=== PATIENT | male | born 1955 | race Caucasian/White ===

== ENCOUNTER 2022-05-04 10:46 | Inpatient (IN) ==
[2022-05-04] MEDS ORDERED: 0.9 % Sodium Chloride 1,000 ML IVC ONE ×2 (11:38→11:39)
[2022-05-04] MEDS ORDERED: Piperacillin/Tazobactam 3.375 GM in 0.9 % Sodium Chloride Mini Bag 100 ML IVPB ONE (11:38)
[2022-05-04 12:30] LABS: Basophils % 0.4 %; Eosinophils # 0.1 K/mcL (0.0-0.6); Eosinophils % 1.4 %; Hematocrit 32.7 % (37.5-50.1); Hemoglobin 10.6 g/dL (12.9-16.9); Immature Granulocytes % 0.4 % (0-4); Lymphocytes # 0.9 K/mcL (0.6-4.6); Lymphocytes % 9.2 %; Mean Corpuscular HGB Conc 32.4 g/dL (31.6-35.5); Mean Corpuscular Volume 86.5 fL (83.0-100.0); Mean Platelet Volume 9.1 fL (9.4-12.4); Monocytes # 0.9 K/mcL (0.0-1.3); Monocytes % 9.8 %; Neutrophils # 7.3 K/mcL (1.6-8.9); Platelet Count 356 K/mcL (140-400); Red Blood Count 3.78 M/mcL (4.19-5.50); Red Cell Distribution Width 16.1 % (11.5-14.5); Segmented Neutrophils % 78.8 %; White Blood Count 9.2 K/mcL (4.3-11.1)
[2022-05-04 12:38] LABS: INR 1.4; Prothrombin Time 15.4 Seconds (9.4-12.1)
[2022-05-04 12:40] LABS: Activated Partial Thrombo Time 30.5 Seconds (26.0-36.0)
[2022-05-04 12:49] LABS: Bilirubin,Urine Negative (Negative); Blood,Urine Large (Negative); Clarity,Urine Ex.Turbid (Clear); Color,Urine Yellow (Yellow); Glucose,Urine (UA) Normal (Normal); Ketones,Urine Negative (Negative); Leukocyte Esterase,Urine Large (Negative); Nitrite,Urine Negative (Negative); PH,Urine 6.5 pH Units (5.0-8.0); Protein,Urine >=300 mg/dL (Neg-Trace); Specific Gravity,Urine 1.018 (1.010-1.025); Urobilinogen,Urine Normal (Normal)
[2022-05-04 12:51] LABS: Alanine Aminotransferase 63 Units/L (7-52); Albumin 3.6 g/dL (3.5-5.7); Albumin/Globulin Ratio 0.9 (1.1-2.2); Alkaline Phosphatase 79 Units/L (34-104); Aspartate Amino Transferase 62 Units/L (13-39); BUN/Creatinine Ratio 23 (6-26); Bilirubin,Direct 0.1 mg/dL (0.0-0.2); Bilirubin,Indirect 0.4 mg/dL (0.0-1.0); Bilirubin,Total 0.5 mg/dL (0.3-1.0); Blood Urea Nitrogen 35 mg/dL (8-23); Calcium 8.7 mg/dL (8.6-10.3); Carbon Dioxide 22 mEq/L (23-29); Chloride 99 mEq/L (98-107); Globulin 3.8 g/dL (2.4-3.5); Glucose 123 mg/dL (70-105); Magnesium 1.3 mg/dL (1.6-2.6); Osmolality,Calculated 281 (280-300); Phosphorous 3.6 mg/dL (2.7-4.5); Potassium 4.3 mEq/L (3.5-5.1); Sodium 131 mEq/L (136-145); Total Protein 7.4 g/dL (6.4-8.9); Troponin I < 0.03 ng/mL (< 0.04)
[2022-05-04] MEDS ORDERED: *HR* FentaNYL (PF) 100 MCG/2 ML VIAL IVP ONE (13:40)
[2022-05-04] MEDS ORDERED: *HR* HYDROcodone/Acet 5/325 mg TABLET PO PRN (15:55)
[2022-05-04] MEDS ORDERED: Ondansetron 4 MG/2 ML VIAL IVP PRN (15:55)
[2022-05-04] MEDS ORDERED: Acetaminophen 325 MG TABLET PO PRN (15:55)
[2022-05-04] MEDS ORDERED: Melatonin 3 MG TABLET PO PRN (15:55)
[2022-05-04] MEDS ORDERED: Naloxone 0.4 MG/ML INJ IVP PRN (15:55)
[2022-05-04] MEDS ORDERED: *HR* FentaNYL (PF) 100 MCG/2 ML VIAL IVP PRN (15:57)
[2022-05-04] MEDS ORDERED: D5% in Water 1,000 ML IVC PRN (16:14)
[2022-05-04] MEDS ORDERED: *HR* Dextrose 50 % in Water (Syg) 50 ML SYRINGE IVP PRN (16:14)
[2022-05-04] MEDS ORDERED: Dextrose Gel 15 GM/37.5 ML TUBE PO PRN ×2 (16:14)
[2022-05-04] MEDS: Insulin LISPRO 300 UNITS/3 ML VIAL SUBQ SCH ×2 (17:26→20:54)
[2022-05-04] MEDS: Cefepime HCl 2,000 MG in 0.9 % Sodium Chloride 10 ML IVP SCH (17:26)
[2022-05-04] MEDS: *HR* Heparin 5,000 UNIT/ML VIAL SQ SCH (17:26)
[2022-05-05 02:02] LABS: Basophils # 0.1 K/mcL (0.0-0.2); Basophils % 0.5 %; Eosinophils # 0.3 K/mcL (0.0-0.6); Eosinophils % 3.5 %; Hematocrit 29.7 % (37.5-50.1); Hemoglobin 9.7 g/dL (12.9-16.9); Immature Granulocytes % 0.2 % (0-4); Lymphocytes # 0.9 K/mcL (0.6-4.6); Lymphocytes % 9.9 %; Mean Corpuscular HGB Conc 32.7 g/dL (31.6-35.5); Mean Corpuscular Hemoglobin 28.2 pg (28.0-33.3); Mean Corpuscular Volume 86.3 fL (83.0-100.0); Mean Platelet Volume 9.4 fL (9.4-12.4); Monocytes # 0.8 K/mcL (0.0-1.3); Monocytes % 8.5 %; Neutrophils # 7.1 K/mcL (1.6-8.9); Platelet Count 349 K/mcL (140-400); Red Blood Count 3.44 M/mcL (4.19-5.50); Red Cell Distribution Width 16.1 % (11.5-14.5); Segmented Neutrophils % 77.4 %; White Blood Count 9.2 K/mcL (4.3-11.1)
[2022-05-05 02:21] LABS: Calcium 8.2 mg/dL (8.6-10.3); INR 1.3; Potassium 4.3 mEq/L (3.5-5.1); Prothrombin Time 14.9 Seconds (9.4-12.1)
[2022-05-05 02:22] LABS: Alanine Aminotransferase 80 Units/L (7-52); Albumin 3.1 g/dL (3.5-5.7); Albumin/Globulin Ratio 0.9 (1.1-2.2); Alkaline Phosphatase 68 Units/L (34-104); Aspartate Amino Transferase 100 Units/L (13-39); Bilirubin,Indirect 0.3 mg/dL (0.0-1.0); Bilirubin,Total 0.3 mg/dL (0.3-1.0); Globulin 3.3 g/dL (2.4-3.5); Total Protein 6.4 g/dL (6.4-8.9)
[2022-05-05] MEDS: *HR* Heparin 5,000 UNIT/ML VIAL SQ SCH (05:54)
[2022-05-05] MEDS: Insulin LISPRO 300 UNITS/3 ML VIAL SUBQ SCH ×4 (06:56→20:06)
[2022-05-05 08:41] LABS: Acetaminophen < 10 mcg/mL (10-20); Salicylate < 2.5 mg/dL (15.0-30.0)
[2022-05-05] MEDS: Cefepime HCl 2,000 MG in 0.9 % Sodium Chloride 10 ML IVP SCH (17:05)
[2022-05-06 08:15] LABS: Enterococcus faecalis by PCR Not Detected (Not Detect); Enterococcus faecium by PCR Not Detected (Not Detect); Staphylococcus aureus by PCR Not Detected (Not Detect); Staphylococcus by PCR Not Detected (Not Detect)
[2022-05-06 08:16] LABS: A.calcoaceticus-baumannii cplx Not Detected (Not Detect); Bacteroides fragilis by PCR Not Detected (Not Detect); Candida albicans by PCR Not Detected (Not Detect); Candida auris by PCR Not Detected (Not Detect); Candida glabrata by PCR Not Detected (Not Detect); Candida krusei by PCR Not Detected (Not Detect); Candida parapsilosis by PCR Not Detected (Not Detect); Candida tropicalis by PCR Not Detected (Not Detect); Crypto. neoformans/gattii PCR Not Detected (Not Detect); Enterobacter cloacae Cmplx PCR Not Detected (Not Detect); Enterobacterales by PCR Not Detected (Not Detect); Escherichia coli by PCR Not Detected (Not Detect); Klebs. pneumoniae group by PCR Not Detected (Not Detect); Klebsiella aerogenes by PCR Not Detected (Not Detect); Klebsiella oxytoca by PCR Not Detected (Not Detect); Proteus by PCR Not Detected (Not Detect); Pseudomonas aeruginosa by PCR Not Detected (Not Detect); Salmonella species by PCR Not Detected (Not Detect); Serratia marcescens by PCR Not Detected (Not Detect); Staph epidermidis by PCR Not Detected (Not Detect); Staph lugdunensis by PCR Not Detected (Not Detect); Stenotrophomonas maltophilia Not Detected (Not Detect); Streptococcus agalactiae(B)PCR Not Detected (Not Detect); Streptococcus by PCR Not Detected (Not Detect); Streptococcus pneumoniae PCR Not Detected (Not Detect); Streptococcus pyogenes (A) PCR Not Detected (Not Detect)
[2022-05-06] MEDS: Insulin LISPRO 300 UNITS/3 ML VIAL SUBQ SCH ×4 (08:50→21:37)
[2022-05-06] MEDS ORDERED: Lidocaine/EPI 1:100k 1% 50 ML VIAL ONE (11:34)
[2022-05-06] MEDS ORDERED: 0.9 % Sodium Chloride 500 ML ONE ×2 (11:34→12:23)
[2022-05-06] MEDS ORDERED: *HR* Midazolam HCl 2 MG/2 ML VIAL IVP ONE (12:04)
[2022-05-06] MEDS ORDERED: *HR* FentaNYL (PF) 100 MCG/2 ML VIAL IVP ONE (12:04)
[2022-05-06] MEDS ORDERED: Iopamidol - 300 50 ML VIAL IVP ONE (12:32)
[2022-05-06 15:51] LABS: Enterococcus faecalis by PCR Not Detected (Not Detect); Enterococcus faecium by PCR Not Detected (Not Detect)
[2022-05-06 15:52] LABS: A.calcoaceticus-baumannii cplx Not Detected (Not Detect); Bacteroides fragilis by PCR Not Detected (Not Detect); Candida albicans by PCR Not Detected (Not Detect); Candida auris by PCR Not Detected (Not Detect); Candida glabrata by PCR Not Detected (Not Detect); Candida krusei by PCR Not Detected (Not Detect); Candida parapsilosis by PCR Not Detected (Not Detect); Candida tropicalis by PCR Not Detected (Not Detect); Crypto. neoformans/gattii PCR Not Detected (Not Detect); Enterobacter cloacae Cmplx PCR Not Detected (Not Detect); Enterobacterales by PCR Not Detected (Not Detect); Escherichia coli by PCR Not Detected (Not Detect); Klebs. pneumoniae group by PCR Not Detected (Not Detect); Klebsiella aerogenes by PCR Not Detected (Not Detect); Klebsiella oxytoca by PCR Not Detected (Not Detect); Proteus by PCR Not Detected (Not Detect); Pseudomonas aeruginosa by PCR Not Detected (Not Detect); Salmonella species by PCR Not Detected (Not Detect); Serratia marcescens by PCR Not Detected (Not Detect); Staph epidermidis by PCR Not Detected (Not Detect); Staph lugdunensis by PCR Not Detected (Not Detect); Staphylococcus aureus by PCR Not Detected (Not Detect); Staphylococcus by PCR DETECTED (Not Detect); Stenotrophomonas maltophilia Not Detected (Not Detect); Streptococcus agalactiae(B)PCR Not Detected (Not Detect); Streptococcus by PCR Not Detected (Not Detect); Streptococcus pneumoniae PCR Not Detected (Not Detect); Streptococcus pyogenes (A) PCR Not Detected (Not Detect)
[2022-05-06] MEDS: Cefepime HCl 2,000 MG in 0.9 % Sodium Chloride 10 ML IVP SCH (17:34)
[2022-05-07] MEDS: *HR* OxyCODONE Immed Rel 5 MG TABLET PO PRN (05:22)
[2022-05-07 05:29] LABS: Basophils # 0.1 K/mcL (0.0-0.2); Basophils % 0.7 %; Eosinophils # 0.4 K/mcL (0.0-0.6); Eosinophils % 4.3 %; Hematocrit 32.7 % (37.5-50.1); Hemoglobin 10.5 g/dL (12.9-16.9); Immature Granulocytes % 0.7 % (0-4); Lymphocytes # 1.4 K/mcL (0.6-4.6); Lymphocytes % 14.2 %; Mean Corpuscular HGB Conc 32.1 g/dL (31.6-35.5); Mean Corpuscular Hemoglobin 28.1 pg (28.0-33.3); Mean Corpuscular Volume 87.4 fL (83.0-100.0); Mean Platelet Volume 8.8 fL (9.4-12.4); Monocytes # 0.6 K/mcL (0.0-1.3); Neutrophils # 7.1 K/mcL (1.6-8.9); Platelet Count 458 K/mcL (140-400); Red Blood Count 3.74 M/mcL (4.19-5.50); Red Cell Distribution Width 16.1 % (11.5-14.5); Segmented Neutrophils % 74.1 %; White Blood Count 9.5 K/mcL (4.3-11.1)
[2022-05-07 05:48] LABS: Calcium 8.4 mg/dL (8.6-10.3); Potassium 4.5 mEq/L (3.5-5.1)
[2022-05-07] MEDS: Insulin LISPRO 300 UNITS/3 ML VIAL SUBQ SCH ×4 (08:10→21:17)
[2022-05-08] MEDS: *HR* OxyCODONE Immed Rel 5 MG TABLET PO PRN (02:29)
[2022-05-08 03:02] LABS: Basophils # 0.1 K/mcL (0.0-0.2); Basophils % 0.7 %; Eosinophils # 0.4 K/mcL (0.0-0.6); Eosinophils % 3.8 %; Hematocrit 33.3 % (37.5-50.1); Hemoglobin 10.6 g/dL (12.9-16.9); Immature Granulocytes % 0.8 % (0-4); Lymphocytes # 1.8 K/mcL (0.6-4.6); Lymphocytes % 15.5 %; Mean Corpuscular HGB Conc 31.8 g/dL (31.6-35.5); Mean Corpuscular Hemoglobin 27.8 pg (28.0-33.3); Mean Corpuscular Volume 87.4 fL (83.0-100.0); Monocytes # 0.7 K/mcL (0.0-1.3); Neutrophils # 8.3 K/mcL (1.6-8.9); Platelet Count 491 K/mcL (140-400); Red Blood Count 3.81 M/mcL (4.19-5.50); Red Cell Distribution Width 16.1 % (11.5-14.5); Segmented Neutrophils % 73.2 %; White Blood Count 11.3 K/mcL (4.3-11.1)
[2022-05-08 04:59] LABS: Calcium 8.7 mg/dL (8.6-10.3); Potassium 4.4 mEq/L (3.5-5.1)
[2022-05-08 05:07] LABS: Albumin 3.3 g/dL (3.5-5.7); Albumin/Globulin Ratio 0.9 (1.1-2.2); Bilirubin,Indirect 0.3 mg/dL (0.0-1.0); Bilirubin,Total 0.3 mg/dL (0.3-1.0); Globulin 3.6 g/dL (2.4-3.5); Total Protein 6.9 g/dL (6.4-8.9)
[2022-05-08] MEDS: Insulin LISPRO 300 UNITS/3 ML VIAL SUBQ SCH ×4 (09:30→23:45)
[2022-05-08] MEDS: cefTRIAXone 2,000 MG in 0.9 % Sodium Chloride Mini Bag 100 ML IVPB SCH (15:25)
[2022-05-08] MEDS: Insulin DETEMIR 100 UNIT/ML X5UNITS SUBQ SCH (15:26)
[2022-05-08 23:13] VITALS: TEMP 98.2
[2022-05-09 08:08] VITALS: BP 151/77; PULSE 83; O2SAT 98
[2022-05-09] MEDS: Insulin LISPRO 300 UNITS/3 ML VIAL SUBQ SCH (08:43)
[2022-05-09] MEDS: cefTRIAXone 2,000 MG in 0.9 % Sodium Chloride Mini Bag 100 ML IVPB SCH (08:55)
[2022-05-09] MEDS: Insulin DETEMIR 100 UNIT/ML X5UNITS SUBQ SCH (08:56)
[2022-05-09] MEDS ORDERED: amLODIPine 5 MG TABLET PO SCH (09:00)
[2022-05-09] MEDS ORDERED: NON-FORMULARY MEDICATION 1 EACH EACH (Insulin Glargine,Hum.Rec.Anlog [Lantus Solostar] 100 SQ SCH (09:00)
[2022-05-09 09:42] LABS: Basophils # 0.1 K/mcL (0.0-0.2); Basophils % 0.7 %; Eosinophils # 0.3 K/mcL (0.0-0.6); Eosinophils % 2.5 %; Hematocrit 34.9 % (37.5-50.1); Hemoglobin 10.9 g/dL (12.9-16.9); Immature Granulocytes % 1.3 % (0-4); Lymphocytes # 1.7 K/mcL (0.6-4.6); Lymphocytes % 13.4 %; Mean Corpuscular HGB Conc 31.2 g/dL (31.6-35.5); Mean Corpuscular Hemoglobin 27.4 pg (28.0-33.3); Mean Corpuscular Volume 87.7 fL (83.0-100.0); Mean Platelet Volume 9.1 fL (9.4-12.4); Monocytes # 0.5 K/mcL (0.0-1.3); Monocytes % 4.1 %; Neutrophils # 9.8 K/mcL (1.6-8.9); Platelet Count 519 K/mcL (140-400); Red Blood Count 3.98 M/mcL (4.19-5.50); Red Cell Distribution Width 16.1 % (11.5-14.5); White Blood Count 12.6 K/mcL (4.3-11.1)
[2022-05-09 10:03] LABS: Potassium 4.3 mEq/L (3.5-5.1)
== END 2022-05-09 10:06 | disposition home or self-care (01) | DRG 690 ==
LOC: 3ANU 10:46 → EMEROOARM 10:46 → SUATTDRO 15:18 → 3ANU 16:47
PROVIDERS: ADMIT Hospitalist; ATTEND Student in an Organized Health Care Education/Training Program